=== PATIENT | female | born 1965 | race Caucasian/White ===

== ENCOUNTER 2024-01-18 06:20 | Day surgery (SDC) | payer MEDICAID ==
[~2024-01-18] VITALS: Ht 162.6 cm; Wt 61.2 kg
[2024-01-18] MEDS ORDERED: MIDAZOLAM HCL 5 MG/5 ML VIAL ONE (06:52)
[2024-01-18] MEDS ORDERED: fentaNYL CITRATE/PF 100 MCG/2 ML AMP ONE (06:52)
[2024-01-18 12:40] VITALS: BP_SYST 129; PULSE 94; RESP 20; TEMP 98.4; O2SAT 99
== END 2024-01-18 09:22 | disposition home or self-care (01) ==
LOC: SDS 06:20 → SMU 06:21 → SDS 09:22
PROVIDERS: ATTEND Internal Medicine
DX: Z12.11 Encounter for screening for malignant neoplasm of colon (principal); D12.2 Benign neoplasm of ascending colon; K63.5 Polyp of colon; K57.30 Diverticulosis of large intestine without perforation or abscess without bleeding; K64.8 Other hemorrhoids; E78.5 Hyperlipidemia, unspecified; Z90.89 Acquired absence of other organs; Z79.899 Other long term (current) drug therapy
CPT/HCPCS: 45380; 45385; 99152; 88305; G0378; J2250; J3010